=== PATIENT | female | born 1940 | race Caucasian/White ===

== ENCOUNTER 2017-07-01 09:27 | Emergency (ER) | payer MEDICARE, OTHER ==
--- NOTE | 2017-07-01 10:36 | RAD ---
FOUR VIEWS OF THE ABDOMEN: INDICATION: Abdominal pain with constipation and left upper quadrant pain. FINDINGS: The bowel gas pattern is unobstructed. There is a mild amount of retained stool within the colon. There are surgical clips within the right upper quadrant. There is scattered degenerative change. There are multiple phleboliths within the lower pelvis. There are calcified granuloma within the sp eugenia. IMPRESSION: Mild amount of retained stool within the colon. POS: CARLOS
[2017-07-01] MEDS ORDERED: Magnesium Citrate 300 ML BOT ONE (10:54)
== END 2017-07-01 11:01 | disposition home or self-care (01) ==
LOC: SCSER 09:27
DX: K59.00 Constipation, unspecified (principal); E78.5 Hyperlipidemia, unspecified; I10 Essential (primary) hypertension; F17.200 Nicotine dependence, unspecified, uncomplicated
CPT/HCPCS: 74020; 99406

== ENCOUNTER 2017-11-09 13:54 | Emergency (ER) | payer MEDICARE ==
[2017-11-09] MEDS ORDERED: Ondansetron HCl/PF 4 MG/2 ML Vial ONE (14:33)
[2017-11-09 14:36] LABS: #Basophils 0.1 thou/uL (0.0-0.2); #Eosinphils 0.1 thou/uL (0.0-0.7); #Lymphocytes 1.8 thou/uL (1.20-3.40); #Monocytes 0.4 thou/uL (0.11-0.59); #Neutrophils 5.3 thou/uL (1.40-6.50); %Basophils 0.9 % (0.0-1.0); %Eosinophils 1.4 % (0.0-10.0); %Lymphocytes 23.1 % (21.0-51.0); %Monocytes 5.6 % (0.0-10.0); Hemoglobin 12.9 g/dL (12.0-16.0); Mean Corpuscular HGB CONC 33.4 g/dL (32.0-36.0); Mean Corpuscular Hemoglobin 33.2 pg (27.0-31.0); Mean Corpuscular Volume 99.4 fl (81.0-99.0); Mean Platelet Volume 6.7 fL (7.4-10.4); Platelet Count 312 thou/uL (130-400); Red Blood Cell (RBC) Count 3.87 mill/uL (4.20-5.40); White Blood Cell (WBC) Count 7.6 thou/uL (4.8-10.8)
[2017-11-09 14:54] LABS: ALT (SGPT) 9 U/L (8-55); AST (SGOT) 25 U/L (5-34); Albumin 3.7 g/dL (3.4-4.8); Alkaline Phosphatase 89 U/L (40-150); Anion Gap 15 mmol/L (10-20); BUN (Urea Nitrogen) 9 mg/dL (9.8-20.1); Bilirubin, Total 0.5 mg/dL (0.2-1.2); CK (CPK) 38 U/L (29-168); CKMB 0.6 ng/mL (0-6.6); Calc. Creatinine Clearance 0 mL/min (70-130); Calcium 8.9 mg/dL (7.8-10.44); Carbon Dioxide 27 mmol/L (23-31); Chloride 101 mmol/L (98-107); Estimated GFR-MDRD 45; Globulin 3.4 g/dL (2.4-3.5); Glucose 120 mg/dL (83-110); Lipase 46 U/L (8-78); Potassium 3.2 mmol/L (3.5-5.1); Protein, Total 7.1 g/dL (6.0-8.3); Sodium 140 mmol/L (136-145)
--- NOTE | 2017-11-09 15:37 | RAD ---
CHEST ONE VIEW: ABDOMEN TWO VIEWS: HISTORY: A 77-year-old female with a history of nausea for one week. COMPARISON: Abdomen, two views, 07/01/2017. Chest, PA and lateral, 09/10/2014. FINDINGS: Extensive atherosclerotic ectatic changes of the aorta with minimal cardiomegaly, stable, with some c hronic increased linear and interstitial markings bilaterally. There is some scattered minimal gas and fecal material in the colon. There are some minimally dilate d loops of small bowel with a few scattered nonspecific air-fluid levels. No evidence for overt larg e or small bowel obstruction. No overt calculus. No free air. IMPRESSION: Stable appearing chest. A few scattered air-fluid levels in nondilated small bowel and colon, nonspe cific. No overt calculus or free air. POS: C
== END 2017-11-09 16:22 | disposition home or self-care (01) ==
LOC: SCSER 13:54
DX: E86.0 Dehydration (principal); E78.5 Hyperlipidemia, unspecified; I10 Essential (primary) hypertension; F41.9 Anxiety disorder, unspecified; F32.9 Major depressive disorder, single episode, unspecified; F17.200 Nicotine dependence, unspecified, uncomplicated; Z79.899 Other long term (current) drug therapy
CPT/HCPCS: 74022; 80053; 82553; 83690; 84484; 85025; 93005; 96361; 96374; 99406; J2405